=== PATIENT | female | born 1990 | race Caucasian/White ===

== ENCOUNTER 2022-09-16 09:49 | Emergency (ER) | payer BC, SELFPAY ==
[2022-09-16 10:31] VITALS: BP 104/70; PULSE 85; RESP 18; TEMP 36.8; O2SAT 100; BMI 29.2
--- NOTE | 2022-09-16 10:37 | ED.ABDPAIN ---
HPI - Abdominal Pain General Time Seen by Provider: 10:38 Date Seen: 09/16/22 Chief Complaint: Abdominal Pain Stated Complaint: Sharp lower abdominal pain Time Seen by Provider: 09/16/22 10:37 Source: patient, RN notes reviewed and old records reviewed Mode of arrival: ambulatory Limitations: no limitations History of Present Illness HPI narrative: Tamara is a very pleasant 32-year-old with history of IUD, kidney stones who comes to the [facility] with complaints of urinary urgency, hematuria and left lower quadrant pain. Patient notes that earlier this week on September 07 she had some blood in her urine without any pain. She has had occasional twinges of discomfort since that time on the left side but at 0300 hours this morning she had the onset of a very bad discomfort left lower quadrant that she thinks was wrapping around from the left flank. She notes that the pain was coming in waves. She did not have any nausea or vomiting and she did not have any fevers. Because she also developed urgency she thought perhaps this was initially a UTI but she notes that she has had kidney stones although with her last kidney stones the pain was more in her back. She did not have any blood in her urine today. She notes no history of ovarian cysts. She thought maybe her stools were somewhat softer this morning but there has been no diarrhea and after having a bowel movement she notes no improvement of her discomfort. In fact she states that it her pain was pretty bad while she was waiting in the waiting room and after she left a urine sample she suddenly felt much better. She notes there is still some residual pressure and discomfort but it is much improved. Patient notes that she thinks the pain actually radiates from the flank when it is bad. She has not taken any medication today but would prefer Tylenol over ibuprofen. Related Data Home Medications Medication Instructions Recorded Confirmed No Known Home Medications 09/16/22 09/16/22 Allergies Allergy/AdvReac Type Severity Reaction Status Date / Time No Known Drug Allergies Allergy Verified 09/16/22 10:31 Review of Systems Status of ROS Reports: 10 or more systems reviewed and unremarkable except as noted in History and below Const Denies: fever, chills or fatigue ENMT Denies: throat pain, neck pain or throat swelling Cardio Denies: chest pain, swelling of feet/ankles, lightheadedness or shortness of breath with exertion Resp Denies: shortness of breath or cough GI Reports: abdominal pain; Denies: nausea, vomiting or diarrhea Reports: painful urination, urinary frequency, urinary urgency and blood in urine (On September 07) Musculo Reports: back pain; Denies: neck pain Neuro Denies: headache Endo Denies: fatigue Allergy/Immuno Denies: throat swelling [facility] Social History Smoking Status: Never smoker Do you use any of these nicotine containing products: None Second hand tobacco smoke exposure: No How often do you have a drink containing alcohol: monthly or less AUDIT-C Alcohol total score: 1 Non-prescribed substance use: denies use Exam Narrative: Exam Narrative: Patient is alert and oriented. Very talkative and is a good historian . External ears eyes nose clear oral cavity moist mucous membranes. Heart with regular rate and rhythm and lungs are clear bilaterally. Abdomen is soft nontender. No CVA tenderness with percussion. Moving all extremities. Const: Vital Signs, click to edit/add: Vital Signs - 24 hr 09/16/22 10:31 Temperature 98.2 F Pulse Rate [Right Pulse Oximeter] 85 Respiratory Rate 18 Blood Pressure [Ri ght Upper Arm] 104/70 Pulse Oximetry 100 Oxygen Delivery Me thod Room Air Documenting provider has reviewed patient's vital signs: yes Course Course Hospital Course: At this time differential diagnosis includes I, ureteral colic, nephrolithiasis, UTI, ovarian torsion, ovarian cyst, diverticulitis, colitis. He at this time most likely diagnosis with hematuria recently, intermittent twinges of left-sided discomfort, increased pain today associated with urgency and urinary pressure it is likely that patient has had a stone I and I am hopeful that it is actually past. We will continue to strain her urine until her urinalysis has return. Will give her Tylenol 1 g p.o. at this time. Reevaluation(s) Reevaluation #1: Patient did have additional urination without evidence of a stone. Suspect this may have passed with the initial collection for the UA. She notes that she is feeling remarkably improved. Vital Signs Vital signs: Initial Vital Signs Temperature 98.2 F 09/16/22 10:31 Temperature Source Temporal Artery Scan 09/16/22 10:31 Pulse Rate 85 09/16/22 10:31 Respiratory Rate 18 09/16/22 10:31 Blood Pressure 104/70 09/16/22 10:31 Blood Pressure Mean 81 09/16/22 10:31 Blood Pressure Position Sitting 09/16/22 10:31 Pulse Oximetry 100 09/16/22 10:31 Oxygen Delivery Method Room Air 09/16/22 10:31 Vital Signs Temperature 98.2 F 09/16/22 10:31 Pulse Rate 85 09/16/22 10:31 Respiratory Rate 18 09/16/22 10:31 Blood Pressure 104/70 09/16/22 10:31 Pulse Oximetry 100 09/16/22 10:31 Oxygen Delivery Method Room Air 09/16/22 10:31 Temperature 98.2 F 09/16/22 10:31 Pulse Rate 85 09/16/22 10:31 Respiratory Rate 18 09/16/22 10:31 Blood Pressure 104/70 09/16/22 10:31 Pulse Oximetry 100 09/16/22 10:31 Oxygen Delivery Method Room Air 09/16/22 10:31 MDM - Abdominal Pain MDM Narrative Medical decision making narrative: 1. Hematuria with abdominal pain-this most likely represents a stone that has now passed. At this time the UA shows no evidence of a UTI or hematuria. Patient has remain in the emergency room for at least an hour and notes that she is continuing to feel well. We spoke about risks benefits of CT and given the fact that she is much improved I feel that the risks of radiation outweigh any benefits. I was honest with her and stated that I could not patellar if this was an ovarian issue or bowel issue although this is much less likely to be the case given the symptoms and history over the past 9 days. Patient is comfortable with our plan not to do any further interventions or radiological studies. We did talk specifically about ovarian torsion and she notes that they have 1 child and she has no desire to get again as she had out with significant depression and her was very challenging for her. I did state that her ovarian torsion could results in a ovary. She still seems fine with our plan of not doing any further intervention radiological studies. 2. Disposition -home. Return as needed for worsening symptoms. No evidence of UTI today. Patient did receive Tylenol 1 g p.o. while present. She will continue to strain her urine at home. Medical Records Attestation: I reviewed the patient's medical records. Lab Data Attestation: I reviewed the patient's lab results. Labs: Lab Results 09/16/22 Range/Units 10:35 HCG, Qual Negative (Negative) Urine Color Yellow (Yellow) Urine Appearance Clear (Clear) Urine pH 7.0 (5.0-8.5) Ur Specific [place] 1.010 (1.000-1.030) Urine Protein Negative (Negative) Urine Glucose (UA) Negative (Negative) Urine Ketones Negative (Negative) Urine Blood Trace-lysed A (Negative) Urine Nitrite Negative (Negative) Urine Bilirubin Negative (Negative) Urine Urobilinogen 0.2 (0.2-1.0) Ur Leukocyte Esterase Negative (Negative) Urine RBC 0-2 (0-2) Urine WBC 0-2 (0-5) Ur Squamous Epith Cells Few (None-Few) Urine Bacteria None (None) Discharge Plan Discharge Clinical Impression: Hematuria Qualifiers: Hematuria type: gross Qualified Code(s): R31.0 - Gross hematuria Abdominal pain Qualifiers: Abdominal location: left lower quadrant Qualified Code(s): R10.32 - Left lower quadrant pain Patient Disposition: Home, Self-Care Condition: Improved Additional Instructions: Push fluids. Return for worsening symptoms. Prescriptions: No Action No Known Home Medications Stand Alone Forms: [employer] Info Instructions
[2022-09-16 10:47] LABS: Appearance Urine Clear (Clear); Bilirubin Urine Negative (Negative); Blood Urine Trace-lysed (Negative); Color Urine Yellow (Yellow); Glucose Urine Negative (Negative); Ketones Urine Negative (Negative); Leukocyte Esterase Urine Negative (Negative); Nitrite Urine Negative (Negative); Protein Urine Negative (Negative); Urobilinogen Urine 0.2 (0.2-1.0)
[2022-09-16 10:52] LABS: HCG Qualitative* Negative (Negative)
[2022-09-16 10:55] LABS: RBC Urine 0-2 (0-2); Squamous Epithelial Cell Urine Few (None-Few); WBC Urine 0-2 (0-5)
[2022-09-16] MEDS: ACETAMINOPHEN 500 MG TABLET 1000 MG PO (11:19)
--- NOTE | 2022-09-16 11:35 | ED.NURSE ---
Pt ambulatory to the BR w/ a steady gait. Provided w/ urine strainer.
== END 2022-09-16 11:51 | disposition home or self-care (01) ==
PROVIDERS: Emergency Provider Family Medicine
DX: R31.0 Gross hematuria (principal)
CPT/HCPCS: 81001; 84703; 99283; A9270

== ENCOUNTER 2024-07-06 14:30 | Outpatient (RCR) | payer BC, SELFPAY | END 2024-11-03 23:59 | disposition home or self-care (01) | PROVIDERS: Visit Provider Chiropractor | DX: M54.50 Low back pain, unspecified (principal); M54.30 Sciatica, unspecified side; M54.2 Cervicalgia; M99.01 Segmental and somatic dysfunction of cervical region; M99.02 Segmental and somatic dysfunction of thoracic region; M99.04 Segmental and somatic dysfunction of sacral region; Z51.89 Encounter for other specified aftercare | CPT/HCPCS: 97110; 97112; 97140; 97161; 97162; 97164; 97530 ==